=== PATIENT | female | born 1990 | race Caucasian/White ===

== ENCOUNTER 2021-10-21 08:18 | Emergency (ER) | payer OTHER ==
[~2021-10-21] VITALS: Ht 165.1 cm; Wt 75.2 kg
[2021-10-21] MEDS ORDERED: LEXA1TAB2 PO (08:27)
[2021-10-21] MEDS ORDERED: [UNRECOGNIZED DRUG - CODE] VG (08:27)
[2021-10-21 10:19] VITALS: BP 119/61
== END 2021-10-21 10:27 | disposition home or self-care (01) ==
LOC: M ED 08:18
DX: S09.90XA Unspecified injury of head, initial encounter (principal); W19.XXXA Unspecified fall, initial encounter; Y92.009 Unspecified place in unspecified non-institutional (private) residence as the place of occurrence of the external cause; Y93.9 Activity, unspecified; Y99.9 Unspecified external cause status; Z87.820 Personal history of traumatic brain injury; Z86.16 Personal history of COVID-19

== ENCOUNTER 2023-10-22 10:05 | Inpatient (IN) | payer OTHER ==
[2023-10-22] VITALS (26 sets, daily range): BP systolic 100–150; BP diastolic 56–88
[~2023-10-22] VITALS: Ht 162.6 cm; Wt 98.6 kg
[~2023-10-22 10:05] MED LIST: LEXA1TAB2 PO; UNRESOLVED CLARIFICATION ENTRY XX SCH; [UNRECOGNIZED DRUG - CODE] VG
[2023-10-22] MEDS ORDERED: LACTATED RINGER'S 1000 ML IV STA (10:31)
[2023-10-22] MEDS ORDERED: CARBOPROST TROMETHAMINE 250 MCG/ML AMP IM PRN (10:35)
[2023-10-22] MEDS ORDERED: OXYTOCIN DRIP 30 UNITS in IV 1 EA IV PRN ×6 (10:35)
[2023-10-22] MEDS ORDERED: TRANEXAMIC ACID INJection 1,000 MG in NS 100 ML IV PRN (10:35)
[2023-10-22] MEDS ORDERED: OXYTOCIN INJ 10UNITS/ML 1ML VIAL IM PRN (10:35)
[2023-10-22] MEDS ORDERED: LR 1,000 ML IV SCH ×2 (10:35→21:50)
[2023-10-22] MEDS ORDERED: LIDOCAINE 1% MDV 20ML VIAL INFIL PRN (10:35)
[2023-10-22 11:26] LABS: APPEARANCE, URINE HAZY (CLEAR); BACTERIA, URINE AUTO NEGATIVE (NEGATIVE); BILIRUBIN, URINE AUTO NEGATIVE (NEGATIVE); BLOOD, URINE BLOOD NEGATIVE (NEGATIVE); COLOR, URINE YELLOW (YELLOW); GLUCOSE, URINE (UA) AUTO 2+ mg/dL (NEGATIVE); KETONE, URINE AUTO TRACE mg/dL (NEGATIVE); LEUKOCYTE ESTERASE, URINE AUTO NEGATIVE (NEGATIVE); MUCUS, URINE SMALL (NEGATIVE); NITRITE, URINE AUTO NEGATIVE (NEGATIVE); PROTEIN, URINE AUTO NEGATIVE (NEGATIVE); RBC, URINE AUTO 2 /HPF (0-3); SPECIFIC GRAVITY URINE AUTO 1.016 (1.002-1.035); SQUAMOUS EPITHELIAL CELL UR AU 6 /HPF (0-6); UROBILINOGEN, URINE AUTO 0.2 mg/dL (0.0-2.0); WBC, URINE AUTO 1 /HPF (0-3)
[2023-10-22 11:28] LABS: HEMATOCRIT 35.9 % (36.0-47.0); HEMOGLOBIN 12.6 g/dl (12.0-15.5); MEAN CORPUSCULAR HEMOGLOBIN 29.7 pg (27.0-33.0); MEAN CORPUSCULAR HGB CONC 35.1 g/dl (32.0-36.5); MEAN CORPUSCULAR VOLUME 84.7 fl (80.0-96.0); PLATELET COUNT, AUTOMATED 285 10^3/uL (150-450); RED BLOOD COUNT 4.24 10^6/uL (4.00-5.40)
[2023-10-22 11:48] LABS: TOTAL PROTEIN,RANDOM URINE 27.1 MG/DL (0.0-14.0)
[2023-10-22 11:52] LABS: URIC ACID 4.7 MG/DL (3.1-7.8)
[2023-10-22 11:53] LABS: CREATININE,RANDOM URINE 77.9 MG/DL
[2023-10-22 11:54] LABS: LDH LACTATE DEHYDROGENASE 182 U/L (120-246)
[2023-10-22 11:55] LABS: ALT/SGPT 10 U/L (7.0-40); AST/SGOT 9 U/L (<34); BILIRUBIN,TOTAL 0.4 MG/DL (0.3-1.2); CREATININE FOR GFR 0.43 MG/DL (0.55-1.30); GLOMERULAR FILTRATION RATE > 60.0 (>60)
[2023-10-22] MEDS ORDERED: OMEP10CASR PO (12:21)
[2023-10-22] MEDS ORDERED: PREN1CHW6 PO (12:21)
[2023-10-22] MEDS ORDERED: PROBCAP14 PO (12:22)
[2023-10-22] MEDS ORDERED: UNIS25TA3 PO (12:22)
[2023-10-22] MEDS ORDERED: miSOPROStol 50MCG 1/2 TABLET PO SCH (14:00)
[2023-10-22] MEDS ORDERED: NALOXONE INJ 0.4MG/1ML VIAL IV PRN (18:45)
[2023-10-22] MEDS ORDERED: ePHEDrine SULFATE 25 MG/5 ML(5MG/ML) SYRINGE IVP PRN (18:45)
[2023-10-22] MEDS ORDERED: ONDANSETRON 4MG 2ML VIAL IV PRN (18:45)
[2023-10-22] MEDS ORDERED: LR 500 ML IV PRN (18:45)
[2023-10-22] MEDS ORDERED: diphenhydrAMINE 50MG/ML VIAL IV PRN (18:45)
[2023-10-22] MEDS ORDERED: EPIDURAL/PCA KEYS XX PRN (18:45)
[2023-10-22] MEDS ORDERED: FENTANYL/ROPIVACAINE/NACL BAG 100 ML EPIDURAL SCH ×2 (18:45)
[2023-10-22] MEDS ORDERED: OXYTOCIN DRIP 30 UNITS in IV 1 EA IV SCH (21:50)
[2023-10-23] VITALS (14 sets, daily range): BP systolic 104–146; BP diastolic 57–79; O2SAT 96–97
[2023-10-23] MEDS ORDERED: LR 1,000 ML IV SCH (03:05)
[2023-10-23] MEDS ORDERED: OXYTOCIN DRIP 30 UNITS in IV 1 EA IV SCH (03:05)
[2023-10-23] MEDS ORDERED: METOCLOPRAMIDE INJ 10MG/2ML VIAL IV PRN (03:05)
[2023-10-23] MEDS ORDERED: RHOGAM 300MCG (1500IU) INJ IM SCH (03:05)
[2023-10-23] MEDS ORDERED: MOM 30ML SUSPENSION UDC PO PRN (03:05)
[2023-10-23] MEDS: OXYTOCIN DRIP 30 UNITS in IV 1 EA IV SCH ×2 (03:05→03:41)
[2023-10-23] MEDS ORDERED: METHYLERGONOVINE MALEATE 0.2 MG TAB PO PRN (03:05)
[2023-10-23] MEDS ORDERED: DOCUSATE SODIUM 100MG CAPSULE PO PRN (03:05)
[2023-10-23] MEDS ORDERED: ACETAMINOPHEN TAB 650MG DOSE (2X325MG) PO PRN (03:05)
[2023-10-23] MEDS ORDERED: ACETAMINOPHEN 500 MG TAB PO PRN (03:05)
[2023-10-23] MEDS ORDERED: DIBUCAINE 1% OINTMENT 30GM TOP PRN (03:05)
[2023-10-23] MEDS ORDERED: IBUPROFEN 800 MG TAB PO PRN (03:05)
[2023-10-23] MEDS: PRENATAL VITAMINS CHEWABLE TABLET PO SCH (08:45)
[2023-10-23] MEDS: IBUPROFEN 600MG TAB PO PRN ×2 (08:46→14:57)
[2023-10-24 05:43] VITALS: BP 115/56; O2SAT 98
[2023-10-24] MEDS ORDERED: ACET1TAB55 PO (08:30)
[2023-10-24] MEDS ORDERED: IBUP-1022 PO (08:30)
[2023-10-24] MEDS ORDERED: COLA100C5 PO (08:30)
[2023-10-24] MEDS: PRENATAL VITAMINS CHEWABLE TABLET PO SCH (09:49)
[2023-10-24] MEDS: IBUPROFEN 600MG TAB PO PRN (09:53)
[2023-10-25] MEDS ORDERED: MEASLES,MUMPS,RUBELLA VACCINE INJ (MMR-II) SC.IMMUN ONE (09:00)
== END 2023-10-24 15:45 | disposition home or self-care (01) | DRG 807 ==
LOC: M LDO 10:05 → M LDI 10:32 → M OBS 10-23 05:00
PROVIDERS: ADMIT Obstetrics & Gynecology; ATTEND Obstetrics & Gynecology
PROC: 3E033VJ Introduction of Other Hormone into Peripheral Vein, Percutaneous Approach (ICD-10-PCS; 2023-10-22)
PROC: 10E0XZZ Delivery of Products of Conception, External Approach (ICD-10-PCS; principal; 2023-10-23)
PROC: 0KQM0ZZ Repair Perineum Muscle, Open Approach (ICD-10-PCS; 2023-10-23)
DX: O42.02 Full-term premature rupture of membranes, onset of labor within 24 hours of rupture (principal); Z37.0 Single live birth; Z3A.39 39 weeks gestation of pregnancy; O70.1 Second degree perineal laceration during delivery; O14.04 Mild to moderate pre-eclampsia, complicating childbirth

== ENCOUNTER 2024-01-02 18:23 | Emergency (ER) | payer OTHER ==
[~2024-01-02] VITALS: Ht 162.6 cm; Wt 92.6 kg
[~2024-01-02 18:23] MED LIST changes: +ACET1TAB55 PO; +COLA100C5 PO; +IBUP-1022 PO; +OMEP10CASR PO; +PREN1CHW6 PO; +PROBCAP14 PO; +UNIS25TA3 PO; -UNRESOLVED CLARIFICATION ENTRY XX SCH
[2024-01-02] MEDS ORDERED: ACET-897 PO (18:47)
[2024-01-02] MEDS ORDERED: SUMA50TA2 PO (18:47)
[2024-01-02] MEDS ORDERED: MAGN400T33 PO (18:47)
[2024-01-02] MEDS ORDERED: B-2100TA PO (18:47)
[2024-01-02] MEDS: NS 1,000 ML IV ONE ×2 (19:44→22:03)
[2024-01-02] MEDS: ceFAZolin SOD 2 GM in IV 1 EA IV ONE (19:50)
[2024-01-02 20:02] LABS: BASO % 0.2 % (0.0-1.0); EOS # 0.1 10^3/uL (0.0-0.5); EOS % 0.6 % (0.0-3.0); HEMATOCRIT 35.9 % (36.0-47.0); HEMOGLOBIN 12.5 g/dl (12.0-15.5); LYMPH % 5.5 % (24.0-44.0); MEAN CORPUSCULAR HEMOGLOBIN 28.8 pg (27.0-33.0); MEAN CORPUSCULAR HGB CONC 34.8 g/dl (32.0-36.5); MEAN CORPUSCULAR VOLUME 82.7 fl (80.0-96.0); MONO # 1.1 10^3/uL (0.0-0.8); MONO % 6.4 % (2.0-8.0); NEUTROPHILS # 14.9 10^3/uL (1.5-8.5); NEUTROPHILS % 86.7 % (36.0-66.0); PLATELET COUNT, AUTOMATED 348 10^3/uL (150-450); RED BLOOD COUNT 4.34 10^6/uL (4.00-5.40); WHITE BLOOD COUNT 17.1 10^3/uL (4.0-10.0)
[2024-01-02 20:17] LABS: CK-MB VALUE MASS < 1.0 NG/ML (<3.6)
[2024-01-02 20:18] LABS: CPK CREATINE PHOSPHOKINASE 78 U/L (34-145); MB/CK RELATIVE INDEX 1.28 (< OR =4)
[2024-01-02 20:19] LABS: ALKALINE PHOSPHATASE 125 U/L (46-116); ALT/SGPT 42 U/L (7.0-40); AST/SGOT 25 U/L (<34); BILIRUBIN,DIRECT 0.2 MG/DL (<0.4); BILIRUBIN,TOTAL 0.5 MG/DL (0.3-1.2); BLOOD UREA NITROGEN 16 MG/DL (9-23); CALCIUM LEVEL 9.1 MG/DL (8.5-10.1); CARBON DIOXIDE LEVEL 21 MMOL/L (20-31); CHLORIDE LEVEL 106 MMOL/L (98-107); CREATININE FOR GFR 0.66 MG/DL (0.55-1.30); GLOMERULAR FILTRATION RATE > 60.0 (>60); GLUCOSE, FASTING 106 MG/DL (60-100); POTASSIUM SERUM 3.8 MMOL/L (3.5-5.1); SODIUM LEVEL 139 MMOL/L (136-145)
[2024-01-02 20:25] LABS: PROCALCITONIN 0.19 ng/ml
[2024-01-02 20:39] LABS: ERYTHROCYTE SEDIMENTATION RATE 40 mm/hr (0-20)
[2024-01-02] MEDS ORDERED: DICL250C70 PO (23:07)
[2024-01-02 23:45] VITALS: BP 114/66
[2024-01-03] MEDS: ACETAMINOPHEN 500 MG TAB PO ONE (00:07)
[2024-01-03 00:51] VITALS: TEMP 101.7; O2SAT 100
== END 2024-01-03 00:58 | disposition home or self-care (01) ==
LOC: M ED 19:03
DX: N61.0 Mastitis without abscess (principal); R00.0 Tachycardia, unspecified; G43.909 Migraine, unspecified, not intractable, without status migrainosus; Z79.82 Long term (current) use of aspirin; Z79.810 Long term (current) use of selective estrogen receptor modulators (SERMs); Z79.899 Other long term (current) drug therapy
CPT/HCPCS: 71045; 80048; 80076; 82550; 82553; 83605; 84145; 84484; 85025; 85652; 86140; 87040; 87486; 87581; 87633; 87798; 93005; 93041; 96361; 96365; 96366; 99285; J0690

== ENCOUNTER → 2024-06-13 | Outpatient (CLI) | payer OTHER ==
[~2024-06-13] MED LIST changes: +ACET-897 PO; +B-2100TA PO; +DICL250C72 PO; +MAGN400T33 PO; +SUMA50TA2 PO
== END ==
LOC: M RAD 07:39
PROVIDERS: ATTEND Emergency Medicine
DX: M25.532 Pain in left wrist (principal); M65.832 Other synovitis and tenosynovitis, left forearm

== ENCOUNTER 2024-09-06 10:26 | Emergency (ER) | payer OTHER ==
[~2024-09-06] VITALS: Ht 162.6 cm; Wt 79.8 kg
[2024-09-06] MEDS ORDERED: ZONI25CA13 PO (10:40)
[2024-09-06 11:48] LABS: BASO % 0.4 % (0.0-1.0); EOS % 0.4 % (0.0-3.0); HEMATOCRIT 42.2 % (36.0-47.0); HEMOGLOBIN 14.4 g/dl (12.0-15.5); LYMPH # 1.3 10^3/uL (1.5-5.0); LYMPH % 12.5 % (24.0-44.0); MEAN CORPUSCULAR HEMOGLOBIN 28.7 pg (27.0-33.0); MEAN CORPUSCULAR HGB CONC 34.1 g/dl (32.0-36.5); MEAN CORPUSCULAR VOLUME 84.1 fl (80.0-96.0); MONO # 0.7 10^3/uL (0.0-0.8); MONO % 6.1 % (2.0-8.0); NEUTROPHILS # 8.6 10^3/uL (1.5-8.5); NEUTROPHILS % 80.1 % (36.0-66.0); PLATELET COUNT, AUTOMATED 350 10^3/uL (150-450); RED BLOOD COUNT 5.02 10^6/uL (4.00-5.40); WHITE BLOOD COUNT 10.7 10^3/uL (4.0-10.0)
[2024-09-06 12:09] LABS: HCG, SERUM QUANTITATIVE < 2.6 MIU/ML (<4.2)
[2024-09-06 12:10] LABS: BLOOD UREA NITROGEN 18 MG/DL (9-23); CALCIUM LEVEL 10.1 MG/DL (8.5-10.1); CARBON DIOXIDE LEVEL 25 MMOL/L (20-31); CHLORIDE LEVEL 106 MMOL/L (98-107); GLOMERULAR FILTRATION RATE > 60.0 (>60); GLUCOSE, FASTING 154 MG/DL (60-100); SODIUM LEVEL 140 MMOL/L (136-145)
[2024-09-06 13:07] VITALS: TEMP 98.8
[2024-09-06 14:20] VITALS: BP 112/78; O2SAT 97
== END 2024-09-06 14:21 | disposition home or self-care (01) ==
LOC: M ED 10:26
DX: N83.202 Unspecified ovarian cyst, left side (principal); G43.909 Migraine, unspecified, not intractable, without status migrainosus